=== PATIENT | female | born 1985 | race Caucasian/White ===

== ENCOUNTER 2016-07-02 07:46 | Day surgery (SDC) | payer OTHER, BC ==
[~2016-07-02 07:46] MED LIST: HYDROmorphone HCL 2 MG/ML VIAL IV PRN; RINGERS SOLUTION,LACTATED 1,000 ML IV PRN; ceFAZolin SODIUM 1 GM VIAL IV PRN; oxyCODONE HCL/ACETAMINOPHEN 1 TAB TABLET PO PRN
--- OUTSIDE RECORDS SUMMARY | 2016-07-02 08:11 | XMS REPORT | Continuity of Care Document ---
:1985 Author Organization [facility] ([facility]) Address [place] [address] Phone [phone] Care Team Providers Name Role Phone Miranda Kwon Primary Care Provider [phone] Source Comments This disclosure is being made pursuant to the Care Everywhere program, applicable federal and state laws, and may not contain all informaitonavailable regarding this patient.[facility] ([facility]) Active Allergies and Adverse Reactions Allergen Noted Date Severity Reactions Comments Penicillin 03/18/2015 Fever Current Medications Prescription Sig. Disp. Refills Start Date End Date Status ibuprofen 600 mg tablet Take 600 mg by Active mouth every 6 hours as needed HYDROcodone-acetaminoph Take 1-2 tablets 15 tablet 0 03/19/2015 Active en 5-325 mg per tablet by mouth every 6 hours as needed Active Problems Not on file Social History Tobacco Use Types Packs/Day Years Used Date Current Every Day Smoker Cigarettes 0.25 Smokeless Tobacco: Never Used Tobacco Cessation:Counseling Given: Yes Comments: Alcohol Use Drinks/Week oz/Week Comments Yes socially Last Filed Vital Signs Vital Sign Reading Time Taken Blood Pressure 112/58 04/24/2015 3:26 PM STEAM FITTER SUPERVISOR MAINTENANCE Pulse 72 04/24/2015 3:26 PM STEAM FITTER SUPERVISOR MAINTENANCE Temperature 36.7 C (98.1 F) 04/24/2015 3:26 PM STEAM FITTER SUPERVISOR MAINTENANCE Respiratory Rate 16 04/24/2015 3:26 PM STEAM FITTER SUPERVISOR MAINTENANCE Height 1.727 m (5' 7.99") 04/24/2015 3:27 PM STEAM FITTER SUPERVISOR MAINTENANCE Weight 65 kg (143 lb 4.8 oz) 04/24/2015 3:26 PM STEAM FITTER SUPERVISOR MAINTENANCE Body Mass Index 21.79 04/24/2015 3:26 PM STEAM FITTER SUPERVISOR MAINTENANCE Oxygen Saturation 100% 03/18/2015 11:39 PM STEAM FITTER SUPERVISOR MAINTENANCE Plan of Care Health Maintenance Due Date Last Done Comments Hepatitis B Vaccine (1 of 3 - Primary Series) 1985 Tdap Vaccine 01/03/1995 Lipid Disorder Screening 01/03/2002 MMR Vaccine 01/03/2002 Td Vaccine 01/03/2002 Varicella Vaccine (1 of 2 - Adult - No Evidence of 01/03/2002 Immunity) Pneumococcal Vaccine (1 of 1 - PPSV23) 01/03/2003 Cervical Cancer Screening 01/03/2014 Influenza Vaccine: Seasonal (#1) 12/08/2015 Results from Last 3 Months Not on file
[2016-07-02] MEDS ORDERED: RINGERS SOLUTION,LACTATED 1,000 ML IV ONE ×2 (08:18→09:30)
[2016-07-02 12:31] VITALS: BP 110/69
--- NOTE | 2016-07-02 18:14 | OR ---
Operative Report - Dictated Report Narrative: Date: 07/02/2016 Physician: Jakub Aguilar M.D. Market Research Analyst: John Baptiste PA-C Preoperative diagnosis: Left Shoulder subacromial impingement Postoperative diagnosis: Left Shoulder subacromial impingement with degenerative minimal anterior labral tear Procedure: Left shoulder arthroscopy with subacromial decompression with acromioplasty and debridement of anterior labrum Anesthesia: General plus regional Complications: None Estimated blood loss: Minimal Specimens: None Retained implants: None Drains: None Indications: Mrs. Ribera Is a 31 year-old female who has been followed in my clinic with complaints of shoulder pain consistent with impingement. Physical exam and diagnostic imaging were consistent with his complaints and concern for abnormal acromial morphology resulting in impingement. Conservative measures have failed including, but not limited to, passage of time, activity modification, medications, physical therapy/home exercise program, or injections. The risks, benefits, and alternatives were discussed in clinic. The risks being , bleeding, infection, blood clots, nerve, tendon, ligament, blood vessel injury, persistent pain, arthrosis, stiffness, need for prolonged therapy, need for additional procedures, and persistent symptoms. Consent was obtained in the clinic. Procedure: After marking the correct extremity in the preoperative holding area, a timeout was performed in the operating room. IV antibiotics consisting of Ancef were administered prior to the procedure. A general followed by regional anesthetic was induced by the nurse automotive dismantler. This was in the supine position, then the patient was transitioned to a beachchair position with all bony prominences well-padded, head in neutral, the nonoperative arm well supported, and the legs padded with SCDs in place. The operative shoulder was then prepped and draped in a standard sterile fashion. Preoperatively the shoulder had full passive range of motion, and no instability. After marking out the bony landmarks, saline was infused into the joint through a posterior lateral portal site. A phillip incision was made, and the blunt trocar and cannula was introduced into the shoulder joint. An accessory portal was placed in the rotator cuff interval using a spinal needle for guidance. Upon initial evaluation, the biceps tendon showed noted in operative. The middle glenohumeral ligament was intact. Subscapularis tendon was intact. The glenoid showed no arthrosis. The humeral head articular surface showed no arthrosis. The anterior labrum was had minimal fraying. The superior labrum was intact. The pouch was unremarkable. The posterior labrum was unremarkable. The supraspinatus tendon was intact. The infraspinatus tendon was intact. Utilizing the anterior portal a shaver was utilized in order to debride the anterior labrum. Attention was then turned to the subacromial space. Subacromial bursectomy was performed utilizing the prior portals. The coracoacromial ligament was frayed. The bursal side of the rotator cuff demonstrated but no tear. The acromial arch at a prominent anterior lateral spur. Utilizing a lateral portal , a elect cautery devices used to skeletonize acromion. A bur was then used to resect approximate 4-5 mm of bone off the anterior lateral aspect of the undersurface of the acromion. This resulted in a flattening of the overall appearance of the acromion. The wounds were thoroughly irrigated. The portal sites were closed with interrupted nylon. Dressings consisting of Xeroform, 4 x 4, ABD, soft roll, and tape were applied. All sponge, needle, blade, and instrument counts were correct prior to closing the wounds. The patient was awoken and transferred to the postanesthesia care unit in stable condition.
== END 2016-07-02 07:47 | disposition home or self-care (01) ==
LOC: AMB 07:46
PROVIDERS: ATTEND Orthopaedic Surgery
PROC: 0RBK4ZZ Excision of Left Shoulder Joint, Percutaneous Endoscopic Approach (ICD-10-PCS; 2016-07-02)
PROC: 0RNK4ZZ Release Left Shoulder Joint, Percutaneous Endoscopic Approach (ICD-10-PCS; principal; 2016-07-02 09:30)
DX: M75.42 Impingement syndrome of left shoulder (principal); S43.492A Other sprain of left shoulder joint, initial encounter; J45.909 Unspecified asthma, uncomplicated; B20 Human immunodeficiency virus [HIV] disease; F17.200 Nicotine dependence, unspecified, uncomplicated; Z68.23 Body mass index [BMI] 23.0-23.9, adult

== ENCOUNTER 2016-08-15 20:02 | Emergency (ER) | payer BC, OTHER ==
--- OUTSIDE RECORDS SUMMARY | 2016-08-15 21:09 | XMS REPORT | Summary of Care ---
:1985 Author Organization [facility] Address [address] [place] [address] Care Team Providers Name Role Phone Miranda Kwon Primary Care Physician Encounter Date(s): 10/07/15 - 10/07/15 [facility], [address] [place], [place] [address] Discharge Disposition: 01 Discharged to Home or Self Care Attending Physician: Alejandra Mondragon MD Referring Physician: Alejandra Mondragon MD Vital Signs Most recent to oldest [Reference Range]: 1 Peripheral Pulse Rate [60-100 bpm] 94 bpm (10/07/15 8:52 AM) Blood Pressure [90-130/60-90 mmHg] 131/78mmHg *HI* (10/07/15 8:52 AM) Mean Arterial Pressure, Cuff 96 mmHg (10/07/15 8:52 AM) Most recent to oldest [Reference Range]: 1 Weight Dosing 62.90 kg1 (10/07/15 8:53 AM) Weight Measured 62.9 kg (10/07/15 8:52 AM) 1Result Comment: This result was because the dosing weight was either not entered or it is>30 days old. This result is based off: Weight Measured October 07, 2015 08:52:00 CDT by Elidia Maza Registered Representative Problem List Condition Effective Dates Status Health Status Informant Chronic leukopenia(Confirmed) 01/30/15 Active ASCUS with positive high risk HPV Active cervical(Confirmed) HIV disease(Confirmed) Active Lyme disease(Confirmed) Active (Confirmed) < 03/06/06 Resolved (Confirmed) < 03/05/08 Resolved (Confirmed) < 07/06/10 Resolved (Confirmed) < 07/31/12 Resolved Allergies, Adverse Reactions, Alerts Substance Reaction Severity Status lidocaine Active penicillin Active Medications citalopram 10 mg oral tablet tab(s), Oral, Daily, 0 Refill(s), Start Date: 03/21/14 14:18:00 DATABASES SOFTWARE CONSULTANT Start Date: 03/21/14 Stop Date: 09/04/14 Status: CompletedFlagyl 375 oral capsule 1 cap(s), Oral, BID, # 14 cap(s), 0 Refill(s), Start Date: 08/18/15 16:16:00 CDT , Pharmacy: [facility] Start Date: 08/18/15 Stop Date: 08/25/15 Status: OrderedFlagyl 500 mg oral tablet 1 tab(s), Oral, q12hr, # 14 tab(s), 0 Refill(s), Start Date: 08/18/15 16:17:00 CDT, Pharmacy: [facility] Start Date: 08/18/15 Stop Date: 08/26/15 Status: DiscontinuedFlexeril 10 mg oral tablet 1 tab(s), Oral, TID, # 9 tab(s), 0 Refill(s), Start Date: 06/26/14 13:45:00 DATABASES SOFTWARE CONSULTANT Start Date: 06/26/14 Stop Date: 09/04/14 Status: CompletedHYDROcodone-acetaminophen 5 mg-325 mg oral tablet 2 tab(s), Oral, q6hr, X 3 days, # 15 tab(s), 0 Refill(s), Start Date: 06/26/14 13:45:00 DATABASES SOFTWARE CONSULTANT Start Date: 06/26/14 Stop Date: 06/29/14 Status: Completedibuprofen 0 Refill(s), Start Date: 03/21/14 14:19:00 DATABASES SOFTWARE CONSULTANT Start Date: 03/21/14 Stop Date: 09/04/14 Status: Completedibuprofen 800 mg oral tablet 1 tab(s), Oral, TID, PRN pain moderate 4-7, X 7 days, # 30 tab(s), 0 Refill(s), Start Date: 06/26/14 13:45:00 DATABASES SOFTWARE CONSULTANT Start Date: 06/26/14 Stop Date: 07/03/14 Status: Completedmeloxicam 15 mg oral tablet 1 tab(s), Oral, Daily, # 90 tab(s), 0 Refill(s), Start Date: 09/12/14 12:02:00 CDT, Pharmacy: [place], [place] Start Date: 09/12/14 Stop Date: 07/09/15 Status: DiscontinuedMotrin IB 200 mg oral tablet See Instructions, PRN for pain, 3 tab(s) TID, 0 Refill(s), Start Date: 09/04/14 8:36:00 CDT Special Instructions: 3 tab(s) TID Start Date: 09/04/14 Status: OrderedNorco 5 mg-325 mg oral tablet tab(s), Oral, q6hr interval, 0 Refill(s), Start Date: 08/18/15 15:12:00 CDT Start Date: 08/18/15 Status: OrderedpredniSONE 10 mg oral tablet 1 tab(s), Oral, Daily, # 14 tab(s), 0 Refill(s), Start Date: 09/04/14 9:44:00 CDT, Pharmacy: [place], [place] Start Date: 09/04/14 Stop Date: 07/09/15 Status: DiscontinuedProAir HFA 90 mcg/inh inhalation aerosol 2 puff(s), Inhale, q4hr, PRN for wheezing, # 1 boxes, 0 Refill(s), Start Date: 09/19/15 20:36:00 CDT Start Date: 09/19/15 Status: OrderedStribild oral tablet 1 tab(s), Oral, Daily, # 30 tab(s), 3 Refill(s), Start Date: 08/26/15 9:22:00 CDT, Pharmacy: [facility] Start Date: 08/26/15 Status: OrderedStribild oral tablet 1 tab(s), Oral, Daily, # 30 tab(s), 1 Refill(s), Start Date: 07/24/15 15:58:00 CDT, Pharmacy: [facility] Start Date: 07/24/15 Stop Date: 08/26/15 Status: DiscontinuedTessalon 200 mg oral capsule 1 cap(s), Oral, q8hr interval, # 15 cap(s), 0 Refill(s), Start Date: 09/19/15 20 :36:00 CDT Start Date: 09/19/15 Stop Date: 09/25/15 Status: OrderedtraMADol 50 mg oral tablet tab(s), Oral, q4hr interval, 0 Refill(s), Start Date: 03/21/14 14:18:00 DATABASES SOFTWARE CONSULTANT Start Date: 03/21/14 Stop Date: 09/04/14 Status: CompletedtraMADol 50 mg oral tablet 1 tab(s), Oral, q6hr interval, 0 Refill(s), Start Date: 07/09/15 10:12:00 DATABASES SOFTWARE CONSULTANT Start Date: 07/09/15 Status: Ordered Results No data available for this section Immunizations No data available for this section Procedures Procedure Date Related Diagnosis Body Site Colposcopy 09/2015 Procedure on ganglion cyst1 05/09/13 Cholecystectomy 07/07/12 Tubal ligation 07/07/12 Manipulation of deviated nasal septum 05/09/08 LEEP 2005 1R wrist Social History No data available for this section Assessment and Plan No data available for this section
--- OUTSIDE RECORDS SUMMARY | 2016-08-15 21:09 | XMS REPORT | Continuity of Care Document ---
:1985 Author Organization [facility] ([facility]) Address [place] [address] Phone [phone] Care Team Providers Name Role Phone Miranda Kwon Primary Care Provider [phone] Source Comments This disclosure is being made pursuant to the Care Everywhere program, applicable federal and state laws, and may not contain all informaitonavailable regarding this patient.[facility] ([facility]) Active Allergies and Adverse Reactions Allergen Noted [...] Taken Blood Pressure 112/58 04/24/2015 3:26 PM MACHINE II ENGRAVER Pulse 72 04/24/2015 3:26 PM MACHINE II ENGRAVER Temperature 36.7 C (98.1 F) 04/24/2015 3:26 PM MACHINE II ENGRAVER Respiratory Rate 16 04/24/2015 3:26 PM MACHINE II ENGRAVER Height 1.727 m (5' 7.99") 04/24/2015 3:27 PM MACHINE II ENGRAVER Weight 65 kg (143 lb 4.8 oz) 04/24/2015 3:26 PM MACHINE II ENGRAVER Body Mass Index 21.79 04/24/2015 3:26 PM MACHINE II ENGRAVER Oxygen Saturation 100% 03/18/2015 11:39 PM MACHINE II ENGRAVER Plan of Care Health Maintenance Due Date [...]
--- OUTSIDE RECORDS SUMMARY | 2016-08-15 21:10 | XMS REPORT | Summary of Care ---
:1985 Author Organization [facility] Address [address] [place] [address]- Care Team Providers Name Role Phone Miranda Kwon Primary Care Physician Encounter Date(s): 10/07/15 - 10/07/[address] [address]- [facility] Final: Atypical squamous cells of undetermined significance on cytologic smear of cervix (ASC-US) Final: Cervical high risk human papillomavirus (HPV) DNA test positive Final: Asymptomatic human immunodeficiency virus [HIV] infection status Discharge Disposition: 01 Discharged to Home or Self Care Attending Physician: Alejandra Mondragon MD Admitting Physician: Alejandra Mondragon MD Vital Signs No data available for this section Problem List Condition Effective Dates Status Health [...] Daily, 0 Refill(s), Start Date: 03/21/14 14:18:00 FIRER ELECTRIC LOCOMOTIVE Start Date: 03/21/14 Stop Date: 09/04/14 Status: CompletedFlagyl 375 oral capsule 1 cap(s), Oral, BID, # 14 cap(s), 0 Refill(s), Start Date: 08/18/15 16:16:00 CDT , Pharmacy: [email or web address] Start Date: 08/18/15 Stop Date: 08/25/15 Status: OrderedFlagyl 500 mg oral tablet 1 tab(s), Oral, q12hr, # 14 tab(s), 0 Refill(s), Start Date: 08/18/15 16:17:00 CDT, Pharmacy: [facility] Start Date: 08/18/15 Stop Date: 08/26/15 Status: DiscontinuedFlexeril 10 mg oral tablet 1 tab(s), Oral, TID, # 9 tab(s), 0 Refill(s), Start Date: 06/26/14 13:45:00 FIRER ELECTRIC LOCOMOTIVE Start Date: 06/26/14 Stop Date: 09/04/14 Status: CompletedHYDROcodone-acetaminophen 5 mg-325 mg oral tablet 2 tab(s), Oral, q6hr, X 3 days, # 15 tab(s), 0 Refill(s), Start Date: 06/26/14 13:45:00 FIRER ELECTRIC LOCOMOTIVE Start Date: 06/26/14 Stop Date: 06/29/14 Status: Completedibuprofen 0 Refill(s), Start Date: 03/21/14 14:19:00 FIRER ELECTRIC LOCOMOTIVE Start Date: 03/21/14 Stop Date: 09/04/14 Status: Completedibuprofen 800 mg oral tablet 1 tab(s), Oral, TID, PRN pain moderate 4-7, X 7 days, # 30 tab(s), 0 Refill(s), Start Date: 06/26/14 13:45:00 FIRER ELECTRIC LOCOMOTIVE Start Date: 06/26/14 Stop Date: 07/03/14 Status: Completedmeloxicam 15 mg oral tablet 1 tab(s), Oral, Daily, # 90 tab(s), 0 Refill(s), Start Date: 09/12/14 12:02:00 CDT, Pharmacy: [place], [place] Start Date: 09/12/14 Stop Date: 07/09/15 [...] Refill(s), Start Date: 09/04/14 9:44:00 CDT, Pharmacy: [place], [place] Start Date: 09/04/14 Stop Date: 07/09/15 Status: DiscontinuedProAir HFA 90 mcg/inh inhalation aerosol 2 puff(s), Inhale, q4hr, PRN for wheezing, # 1 boxes, 0 Refill(s), Start Date: 09/19/15 20:36:00 CDT Start Date: 09/19/15 Status: OrderedStribild oral tablet 1 tab(s), Oral, Daily, # 30 tab(s), 3 Refill(s), Start Date: 08/26/15 9:22:00 CDT, Pharmacy: [facility] Start Date: 08/26/15 Status: OrderedStribild oral tablet 1 tab(s), Oral, Daily, # 30 tab(s), 1 Refill(s), Start Date: 07/24/15 15:58:00 CDT, Pharmacy: [facility] Start Date: 07/24/15 Stop Date: 08/26/15 Status: DiscontinuedTessalon 200 mg oral capsule 1 cap(s), Oral, q8hr interval, # 15 cap(s), 0 Refill(s), Start Date: 09/19/15 20 :36:00 CDT Start Date: 09/19/15 Stop Date: 09/25/15 Status: OrderedtraMADol 50 mg oral tablet tab(s), Oral, q4hr interval, 0 Refill(s), Start Date: 03/21/14 14:18:00 FIRER ELECTRIC LOCOMOTIVE Start Date: 03/21/14 Stop Date: 09/04/14 Status: CompletedtraMADol 50 mg oral tablet 1 tab(s), Oral, q6hr interval, 0 Refill(s), Start Date: 07/09/15 10:12:00 FIRER ELECTRIC LOCOMOTIVE Start Date: 07/09/15 Status: Ordered Results Patient Viewable Results Most recent to oldest [Reference Range]: 1 Test Name Anal pap *NA* (10/07/15 9:50 AM) Result See Comment1 *NA* (10/07/15 9:50 AM) 1Result Comment: Test Result Flag Unit RefValue [facility] [employer]. Test Name HPV DNA LOW AND HIGH RISK, ANAL RECTAL Result See Comment HPV DNA, LOW AND HIGH RISK, ANAL-RECTAL HPV DNA, (HIGH RISK), ANAL-RECTAL NOT DETECTED HPV DNA, (LOW RISK) ANAL-RECTAL NOT DETECTED REFERENCE RANGE: HPV TOMI, HIGH RISK: NOT DETECTED HPV TOMI, LOW RISK: NOT DETECTED The analytical performance characteristics of this assay have been determined by [employer]. The modifications have not been cleared or approved by the FDA. This assay has been validated pursuant to the CLIA regulations and is used for clinical purposes. Test Performed by: [employer]. [id number] [place] [address] Immunizations No data available for this section Procedures Procedure Date Related Diagnosis Body Site Colposcopy 09/2015 Procedure on ganglion cyst1 05/09/13 Cholecystectomy 07/07/12 Tubal ligation 07/07/12 Manipulation of deviated nasal septum 05/09/08 LEEP 2004 1R wrist Social History No data available for this section Assessment and Plan No data available for this section
--- OUTSIDE RECORDS SUMMARY | 2016-08-15 21:10 | XMS REPORT | Summary of Care ---
:[address] [facility] Address [address] [place] [address]- Care Team Providers Name Role Phone Miranda Kwon Primary Care Physician Encounter Date(s): 10/18/15 - 10/19/[address] [address]- [facility] Discharge Diagnosis: Ankle pain Final: Pain in right ankle and joints of right foot Final: Exposure to other specified factors, initial encounter Discharge Disposition: 01 Discharged to Home or Self Care Attending Physician: Cresencio Pink MD Admitting Physician: Cresencio Pink MD Vital Signs Most recent to oldest [Reference Range]: 1 2 Temperature Temporal Artery [36.0-38.0 DegC] 36.9 DegC (10/18/15 10:28 PM) Heart Rate Monitored [60-100 bpm] 92 bpm 100 bpm (10/19/15 12:25 AM) (10/18/15 10:28 PM) Respiratory Rate [12-20 br/min] 16 br/min 16 br/min (10/19/15 12:25 AM) (10/18/15 10:28 PM) SpO2 100 % 100 % (10/19/15 12:25 AM) (10/18/15 10:28 PM) Blood Pressure [90-130/60-90 mmHg] 108/68mmHg 106/67mmHg (10/19/15 12:25 AM) (10/18/15 10:28 PM) Most recent to oldest [Reference Range]: 1 2 Weight Dosing 64.30 kg1 (10/18/15 10:31 PM) Weight Measured 64.3 kg (10/18/15 10:28 PM) 1Result Comment: This result was because the dosing weight was either not entered or it is>30 days old. This result is based off: Weight Measured October 18, 2015 22:28:00 CDT by Angelika Vasques Problem List Condition Effective Dates Status Health [...] Daily, 0 Refill(s), Start Date: 03/21/14 14:18:00 SEAM CLOSER Start Date: 03/21/14 Stop Date: 09/04/14 Status: CompletedFlagyl 375 oral capsule 1 cap(s), Oral, BID, # 14 cap(s), 0 Refill(s), Start Date: 08/18/15 16:16:00 CDT , Pharmacy: [facility] Start Date: 08/18/15 Stop Date: 08/25/15 Status: OrderedFlagyl 500 mg oral tablet 1 tab(s), Oral, q12hr, # 14 tab(s), 0 Refill(s), Start Date: 08/18/15 16:17:00 CDT, Pharmacy: [facility] Start Date: 08/18/15 Stop Date: 08/26/15 Status: DiscontinuedFlexeril 10 mg oral tablet 1 tab(s), Oral, TID, # 9 tab(s), 0 Refill(s), Start Date: 06/26/14 13:45:00 SEAM CLOSER Start Date: 06/26/14 Stop Date: 09/04/14 Status: CompletedHYDROcodone-acetaminophen 5 mg-325 mg oral tablet 2 tab(s), Oral, q6hr, X 3 days, # 15 tab(s), 0 Refill(s), Start Date: 06/26/14 13:45:00 SEAM CLOSER Start Date: 06/26/14 Stop Date: 06/29/14 Status: Completedibuprofen 0 Refill(s), Start Date: 03/21/14 14:19:00 SEAM CLOSER Start Date: 03/21/14 Stop Date: 09/04/14 Status: Completedibuprofen 800 mg oral tablet 1 tab(s), Oral, TID, PRN pain moderate 4-7, X 7 days, # 30 tab(s), 0 Refill(s), Start Date: 06/26/14 13:45:00 SEAM CLOSER Start Date: 06/26/14 Stop Date: 07/03/14 Status: Completedmeloxicam 15 mg oral tablet 1 tab(s), Oral, Daily, # 90 tab(s), 0 Refill(s), Start Date: 09/12/14 12:02:00 CDT, Pharmacy: [place] Start Date: 09/12/14 Stop Date: 07/09/15 [...] Refill(s), Start Date: 09/04/14 9:44:00 CDT, Pharmacy: [place] Start Date: 09/04/14 Stop Date: 07/09/15 Status: DiscontinuedProAir HFA 90 mcg/inh inhalation aerosol 2 puff(s), Inhale, q4hr, PRN for wheezing, # 1 boxes, 0 Refill(s), Start Date: 09/19/15 20:36:00 CDT Start Date: 09/19/15 Status: OrderedStribild oral tablet 1 tab(s), Oral, Daily, # 30 tab(s), 3 Refill(s), Start Date: 08/26/15 9:22:00 CDT, Pharmacy: [facility] Start Date: 08/26/15 Status: OrderedStribild oral tablet 1 tab(s), Oral, Daily, # 30 tab(s), 1 Refill(s), Start Date: 07/24/15 15:58:00 CDT, Pharmacy: [facility] Start Date: 07/24/15 Stop Date: 08/26/15 Status: DiscontinuedTessalon 200 mg oral capsule 1 cap(s), Oral, q8hr interval, # 15 cap(s), 0 Refill(s), Start Date: 09/19/15 20 :36:00 CDT Start Date: 09/19/15 Stop Date: 09/25/15 Status: OrderedtraMADol 50 mg oral tablet tab(s), Oral, q4hr interval, 0 Refill(s), Start Date: 03/21/14 14:18:00 SEAM CLOSER Start Date: 03/21/14 Stop Date: 09/04/14 Status: CompletedtraMADol 50 mg oral tablet 1 tab(s), Oral, q6hr interval, 0 Refill(s), Start Date: 07/09/15 10:12:00 SEAM CLOSER Start Date: 07/09/15 Status: Ordered Results No [...]
[2016-08-15 21:30] LABS: Urine Bilirubin Negative (NEGATIVE); Urine Blood 50 /ul (NEGATIVE); Urine Ketone Negative (NEGATIVE); Urine Nitrite Negative (NEGATIVE); Urine Protein Negative (NEGATIVE); Urine Specific Gravity 1.025 SP.GR. (1.005-1.010); Urine Urobilinogen Normal (NORMAL)
[2016-08-15 21:36] LABS: Urine Appearance Clear; Urine Bacteria 2+; Urine Color Yellow
[2016-08-15] MEDS ORDERED: CIPROFLOXACIN HCL 250 MG TABLET PO ONE (21:52)
[2016-08-15] MEDS ORDERED: CIPROFLOXACIN HCL 250 MG TABLET ONE (21:53)
[2016-08-15 22:02] VITALS: BP 111/76
--- NOTE | 2016-08-15 22:03 | ERNOTE ---
ER Female HPI Date of Service: 08/15/16 Stated Complaint: UTI. KIDNEY PAIN Presenting Symptoms: pelvic pain Time Seen by Provider: 08/15/16 20:57 Source: patient Exam Limitations: no limitations Immunizations: IMMUNIZATION HX Immunizations Up to Date Yes History of Influenza Vaccine Yes Hx Pneumococcal Vaccination No Allergies/Adverse Reactions: Allergies corn [[place]] Allergy (Mild, Verified 07/02/16 07:59) Hives corn pollen Penicillins Adverse Reaction (Mild, Verified 07/02/16 07:59) fever Home Medications: HOME MEDICATIONS Ascorbic Acid/Vitamin E/Biotin [Hair Skin Nails-Biotin Gummies] 1 each PO DAILY 06/18/16 [Last Taken Unknown] Calcium/Magnesium/Vit D3 [Calcium 500 mg Tablet] 1 tab PO DAILY 06/18/16 [Last Taken Unknown] Elviteg/Vidhi/Emtric/Tenofo Dis [Stribild Tablet] 1 each PO DAILY 06/18/16 [Last Taken 07/02/16 06:30] Fish Oil/Borage/Flax/Om3,6,9#1 [[place] 3-6-9 1,200 mg Softgel] 1,200 mg PO DAILY 06/18/16 [Last Taken Unknown] Ibuprofen [Motrin] 800 mg PO Q8H PRN 06/18/16 [Last Taken Unknown] Multivitamin [One Daily Essential] 1 each PO DAILY 06/18/16 [Last Taken Unknown] Ciprofloxacin HCl [Cipro] 500 mg PO BID #20 tab 08/15/16 [Last Taken Unknown] - History of Present Illness Narrative: 31 year old female to the ER for low back pain, and bladder fullness. patient states she has urgency and discomfort at the end of voiding. Date (Duration): 08/15/16 - He responded Timing: Present: getting worse Quality: Present: mild Onset Location: Present: suprapubic, right flank, left flank Radiation: Present: none Activities at Onset: Present: none Prior Abdominal Problems: Present: none Associated Symptoms: Present: dysuria - allergies as, urinary frequency Review of Systems - Review of Systems Constitutional: Present: See HPI EYE: Present: no symptoms reported ENT: Present: no symptoms reported Respiratory: Present: no symptoms reported Cardiology: Present: no symptoms reported Gastrointestinal/Abdominal: Present: no symptoms reported Genitourinary: Present: See HPI, frequency, pain, dysuria Musculoskeletal: Present: no symptoms reported Skin: Present: no symptoms reported Neurological: Present: no symptoms reported Endocrine: Present: no symptoms reported Hematologic/Lymphatic: Present: no symptoms reported Psych: Present: no symptoms reported - Patient's Past Medical History Patient History - Medical: Anemia, Anxiety, Depression, Migraines, Other Patient History - Cardiac/Respiratory: Asthma Patient History - Cancer: No Hx of Cancer Patient History - Surgical Procedures: Cholecystectomy, Tubal Ligation Patient History - Other: HIV - Family History Mother Family History - Medical: Diabetes Type 2, Fibromyalgia Family History - Cardiac/Respiratory: Hypertension, Hyperlipidemia Family History - Cancer: No pertinent family hx Father Family History - Medical: No pertinent hx Family History - Cardiac/Respiratory: Hypertension Family History - Cancer: No pertinent family hx - Social History Living Situations: home Abuse History: No History of abuse Psych History: Hx of Anxiety, Hx of Depression Does anyone smoke in the home?: Yes Smoking Status: Current every day smoker Patient requests Smoking Cessation Consult: No Initiate information on Smoking Cessation: No Alcohol Use: occasionally Drug Use: none - Immunizations Immunizations Up to Date: Yes Hx Pneumococcal Vaccination: No History of Influenza Vaccine: Yes Physical Exam - Physical Exam General Appearance: Present: wd/wn, alert, no apparent distress - Gen.: He is in Eye Exam: Normal inspection: bilateral Ears, Nose, Throat: Present: normal ENT inspection Neck: Present: normal inspection Respiratory: Present: no respiratory distress Cardiovascular/Chest: Present: regular rate, rhythm Gastrointestinal/Abdominal: Present: normal bowel sounds, nontender, soft Back Exam: Present: normal inspection, CVA tenderness (R), CVA tenderness (L) Extremity Exam: Present: normal inspection, no edema Neurological Exam: Present: alert, oriented, normal mood/affect Skin Exam: Present: normal color, warm/dry Lymphatic Exam: Present: no adenopathy ED Progress - Results and Orders Patient's Lab Results:: I have reviewed the patient's lab results. Results and Orders: positive UA - Vital Signs Patient's Vital Signs:: I have reviewed the patient's vital signs. Vital Signs: Vital Signs 08/15/16 20:25 Temperature 37.1 C Pulse Rate 99 Respiratory 16 Rate Blood Pressure 114/67 O2 Sat by Pulse 99 Oximetry - Progress/Reassessment Chief Complaint: Genitourinary Problem Progress:: Improved Departure Clinical Impression: Urinary tract infection Qualifiers: Urinary tract infection type: site unspecified Hematuria presence: with hematuria Qualified Code(s): N39.0 - Urinary tract infection, site not specified - Departure Disposition: Home Follow Up Needed Condition: Stable Instructions: Urinary Tract Infection, Adult, [id number] Additional Instructions: Continue taking previous home medications as directed. Take antibiotics as directed. Follow up with her primary care physician in the next 2-3 days. Return to the emergency room if symptoms do not subside or become worse. Referrals: Miranda Kwon MD [Primary Care Provider] - Prescriptions: Ciprofloxacin HCl [Cipro] 500 mg PO BID #20 tab
== END 2016-08-15 22:10 | disposition home or self-care (01) ==
LOC: ER 20:02
DX: N39.0 Urinary tract infection, site not specified (principal); Z72.0 Tobacco use